=== PATIENT | male | born 1995 | race Caucasian/White ===

== ENCOUNTER 2023-03-13 08:53 | Emergency (ER) | payer SELFPAY ==
[2023-03-13 10:30] LABS: BASOPHILS # (AUTO) 0.1 10^3/uL (0.0-0.1); EOSINOPHILS # (AUTO) 0.1 10^3/uL (0.0-0.7); EOSINOPHILS % (AUTO) 2.1 %; HCT - HEMATOCRIT 42.8 % (42.0-52.0); HGB - HEMOGLOBIN 15.5 g/dL (14.0-18.0); LYMPHOCYTES # (AUTO) 1.9 10^3/uL (1.5-3.5); LYMPHOCYTES % (AUTO) 30.7 %; MEAN CORPUSCULAR HEMOGLOBIN 32.1 pg (27.0-31.0); MEAN CORPUSCULAR HGB CONC 36.2 g/dL (32.0-36.0); MEAN CORPUSCULAR VOLUME 88.6 fL (80.0-94.0); MEAN PLATELET VOLUME 10.9 fL (7.4-11.4); MONOCYTES # (AUTO) 0.5 10^3/uL (0.0-1.0); MONOCYTES % (AUTO) 8.2 %; NEUTROPHILS # (AUTO) 3.6 10^3/uL (1.5-6.6); NEUTROPHILS % (AUTO) 57.7 %; PLT - PLATELET COUNT 287 10^3/uL (130-450); RED BLOOD COUNT 4.83 10^6/uL (4.70-6.10); RED CELL DISTRIBUTION WIDTH 11.7 % (12.0-15.0); WHITE BLOOD COUNT 6.3 x10^3/uL (4.8-10.8)
[2023-03-13 10:47] LABS: ALBUMIN 4.5 g/dL (3.2-5.5); ALBUMIN/GLOBULIN RATIO 1.5 (1.0-2.2); BILIRUBIN,TOTAL 0.9 mg/dL (0.2-1.0); CALCIUM 9.1 mg/dL (8.5-10.3); POTASSIUM 3.9 mmol/L (3.5-5.0); TOTAL PROTEIN 7.5 g/dL (6.7-8.2)
--- NOTE | 2023-03-13 10:52 | XRAY Report ---
PROCEDURE: Chest 1 View X-Ray INDICATIONS: CP TECHNIQUE: One view of the chest was acquired. COMPARISON: None. FINDINGS: Surgical changes and devices: None. Lungs and pleura: No pleural effusions or pneumothorax. Lungs are clear. Mediastinum: Mediastinal contours appear normal. Heart size is normal. Bones and chest wall: No suspicious bony lesions. Overlying soft tissues appear unremarkable. IMPRESSION: No acute cardiopulmonary process. Reviewed by: Raymundo Parham MD on 03/13/2023 10:51 AM PDT Approved by: Raymundo Parham MD on 03/13/2023 10:51 AM PDT Station ID: [id number]
--- NOTE | 2023-03-13 11:20 | ED Physician Documentation ---
PD HPI CHEST PAIN - Stated complaint Stated Complaint: CHEST PX, COUGH - Chief complaint Chief Complaint: Cardiac - History obtained from History obtained from: Patient - Additional information Additional information: Patient is a 27-year-old male with no significant prior medical history presenting for evaluation of left-sided chest pain that has been intermittent for the past 4 days. Patient again reported noticing symptoms yesterday while he was at work. Denies exertion at onset. Reports that the pain lasts for a minute or 2 and then goes away. At times he feels some discomfort in his left arm. Nothing seems to exacerbate or alleviate his symptoms. He does report noticing some mild tenderness to the left chest wall. He is unsure of any Recent activity that could have exacerbated the muscles in this area. Denies recent illness. No cough, fever, shortness of air. Denies family history of early coronary artery disease, hypertension, diabetes, hyperlipidemia. No recent travel or immobilization or history of PE or DVT. Review of Systems Constitutional: denies: Fever Cardiac: reports: Chest pain / pressure Respiratory: denies: Dyspnea GI: denies: Abdominal Pain Musculoskeletal: denies: Extremity swelling Neurologic: denies: Headache PD PAST MEDICAL HISTORY - Past Surgical History Past Surgical History: No - Allergies Allergies/Adverse Reactions: Allergies Allergy/AdvReac Type Severity Reaction Status Date / Time No Known Drug Allergies Allergy Verified 03/13/23 09:11 - Social History Does the pt smoke?: No Smoking Status: Never smoker Does the pt drink ETOH?: No Does the pt have substance abuse?: No - Immunizations Immunizations are current?: Yes - POLST Patient has POLST: No PD ED PE NORMAL - General General: Alert and oriented X 3, No acute distress, Well developed/nourished - HEENT HEENT: Atraumatic - Neck Neck: Supple, no meningeal sign - Cardiac Cardiac: RRR, No murmur, Strong equal pulses - Respiratory Respiratory: No respiratory distress, Clear bilaterally - Abdomen Abdomen: Soft, Non tender - Derm Derm: Warm and dry - Extremities Extremities: No edema, No calf tenderness / cord - Neuro Neuro: Alert and oriented X 3, No motor deficit, Normal speech Results - Vitals Vitals: Vital Signs - 24 hr 03/13/23 03/13/23 03/13/23 09:06 09:10 11:27 Temperature 98.2 C H 36.7 C 36.9 C Heart Rate 58 L 66 Respiratory 20 12 Rate Blood Pressure 124/72 117/70 O2 Saturation 99 98 Oxygen O2 Source Room air - EKG (time done) 0918 EKG releavant findings:: EKG personally interpreted by author of this note. Relevant findings are: Rate 66, normal sinus rhythm, no STEMI, No ST depressions Rate: Rate (enter#) (66) Rhythm: NSR Intervals: No: Prolonged QT Ischemia: No: ST elevation c/w ischemia Compare to prior EKG: Old EKG unavailable - Labs Labs: Laboratory Tests 03/13/23 03/13/23 03/13/23 10:22 10:22 10:22 WBC 6.3 RBC 4.83 Hgb 15.5 Hct 42.8 MCV 88.6 MCH 32.1 H MCHC 36.2 H RDW 11.7 L Plt Count 287 MPV 10.9 Neut # (Auto) 3.6 Lymph # (Auto) 1.9 Stewart # (Auto) 0.5 Eos # (Auto) 0.1 Baso # (Auto) 0.1 Absolute Nucleated RBC 0.00 Nucleated RBC % 0.0 Sodium 138 Potassium 3.9 Chloride 103 Carbon Dioxide 28 Anion Gap 7.0 BUN 15 Creatinine 1.0 Estimated GFR (MDRD) 90 Glucose 92 Calcium 9.1 Total Bilirubin 0.9 AST 42 ALT 77 H Alkaline Phosphatase 59 Troponin I High Sens < 2.3 L Total Protein 7.5 Albumin 4.5 Globulin 3.0 Albumin/Globulin Ratio 1.5 PD Medical Decision Making - ED course Complexity details: reviewed results, re-evaluated patient, d/w patient ED course: Patient is a 27-year-old male presenting for evaluation of left-sided chest pain that has been intermittent all week. No known risk factors for coronary artery disease. PERC negative. Doubt dissection as pain is not migratory. Pain appears to come For short periods of time and resolves on its own.EKG demonstrates a normal sinus rhythm without signs of acute ischemia. CBC, chemistries and troponin were obtained without significant findings. Do not think he needs a repeat troponin as symptoms have been ongoing for the past several days. Chest x-ray which I reviewed is negative for pneumonia, effusion, pneumothorax. Heart size appears to be normal. Patient has been resting comfortably here. He does have tenderness upon palpation to the area. There is no overlying findings to suggest a cellulitis or an abscess. Discussed possible etiologies to include muscle strain. Recommend continued supportive care with anti-inflammatories and [facility] Patient is counseled on concerning symptoms to return for. Departure - Departure Disposition: 01 Home, Self Care Clinical Impression: Left-sided chest pain Condition: Stable Instructions: ED Chest Pain Atypical Unkn Cause Follow-Up: MILDRED Mercado [Provider Group] Comments: You were evaluated for chest pain. At this time I do not see any issues related to your heart such as a heart attack.Your chest x-ray is clear. You do have some tenderness to the muscle area Over your left chest which could be contributing to your pain. I would recommend a trial of anti-inflammatory such as ibuprofen or acetaminophen and [facility]. Please return to the emergency department if you develop any worsening symptoms. Discharge Date/Time: 03/13/23 11:30
[2023-03-13 11:34] VITALS: BP 117/70
== END 2023-03-13 11:30 | disposition home or self-care (01) ==
LOC: ED 08:53
DX: R07.9 Chest pain, unspecified (principal)
CPT/HCPCS: 36415; 80053; 84484; 85025; 93005; 99283; 99284